=== PATIENT | female | born 1955 | race Caucasian/White ===

== ENCOUNTER 2018-11-25 15:54 | Emergency (ER) | payer OTHER ==
[~2018-11-25] VITALS: Ht 162.6 cm; Wt 61.2 kg
[2018-11-25 15:59] VITALS: Ht 162.6 cm; Wt 61.2 kg
[2018-11-25 17:25] LABS: BASOPHIL % 0.3 % (0-2); PLATELET COUNT 268 x10^3mcL (130-400); RED CELL DISTRIBUTION WIDTH 14.2 % (11.5-14.5)
[2018-11-25 17:37] LABS: CALCIUM 8.1 mg/dL (8.5-10.1); CARBON DIOXIDE 29.3 mmol/L (21-32); CHLORIDE SERUM 105 mmol/L (98-107); CREATININE SERUM 0.8 mg/dL (0.6-1.0); GFR1 > 60 mL/min; GLUCOSE SERUM 152 mg/dL (74-106); POTASSIUM SERUM 3.6 mmol/L (3.5-5.1); SODIUM SERUM 141 mmol/L (136-145)
[2018-11-25 17:46] LABS: ALBUMIN 3.5 g/dL (3.4-5.0); ALKALINE PHOSPHATASE 81 U/L (46-116); ALT/SGPT 16 U/L (14-59); AST/SGOT 25 U/L (15-37); BILIRUBIN TOTAL 0.24 mg/dL (0.20-1.00); HDL CHOLESTEROL 51 mg/dL (40-60); MAGNESIUM 1.9 mg/dL (1.8-2.4)
[2018-11-25 17:47] LABS: CHOLESTEROL 129 mg/dL (<200)
[2018-11-25 18:10] LABS: microscopic required? YES; urine erythrocyte TRACE (NEGATIVE)
[2018-11-25 18:52] VITALS: BP 107/58
== END 2018-11-25 18:52 | disposition home or self-care (01) ==
LOC: ED 15:54
PROVIDERS: Emergency Medicine
DX: E86.0 Dehydration (principal); G40.909 Epilepsy, unspecified, not intractable, without status epilepticus; D72.829 Elevated white blood cell count, unspecified; T40.7X1A Poisoning by cannabis (derivatives), accidental (unintentional), initial encounter; Y92.89 Other specified places as the place of occurrence of the external cause
CPT/HCPCS: J7030